=== PATIENT | female | born 1985 | race Caucasian/White ===

== ENCOUNTER 2016-06-14 23:15 | Emergency (ER) | payer SELFPAY ==
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
== END 2016-06-15 01:15 | disposition home or self-care (01) ==
LOC: CED 23:15
DX: S00.83XA Contusion of other part of head, initial encounter (principal); S70.01XA Contusion of right hip, initial encounter; Y04.0XXA Assault by unarmed brawl or fight, initial encounter; Y92.69 Other specified industrial and construction area as the place of occurrence of the external cause; Y99.0 Civilian activity done for income or pay
CPT/HCPCS: 70486; 99284